=== PATIENT | female | born 1985 | race Caucasian/White ===

== ENCOUNTER 2016-10-24 16:02 | Inpatient (IN) | payer MEDICAID ==
[~2016-10-24] VITALS: Ht 170.2 cm; Wt 109.5 kg
[2016-10-24] MEDS ORDERED: FENTANYL PF 100 MCG/2ML ONE ×2 (16:19→17:17)
[2016-10-24] MEDS ORDERED: MAGNESIUM SULFATE PMX 4GM/100M 100 ML ONE (16:19)
[2016-10-24] MEDS ORDERED: BETAMETHASONE 6 MG/ML, 5ML IM ONE (16:19)
[2016-10-24] MEDS ORDERED: MAGNESIUM SULFATE PMX 4GM/100M 100 ML IVPB ONE (16:30)
[2016-10-24] MEDS ORDERED: MAGNESIUM SULF. PMX 20GM/500ML 500 ML IV SCH (16:30)
[2016-10-24] MEDS ORDERED: BETAMETHASONE 6 MG/ML, 5ML IM SCH (16:30)
[2016-10-24] MEDS ORDERED: LACTATED RINGERS 1,000 ML IV PRN (16:30)
[2016-10-24] MEDS ORDERED: FENTANYL PF 100 MCG/2ML IVPush PRN (16:30)
[2016-10-24] MEDS ORDERED: FENTANYL PF 100 MCG/2ML IV PRN (16:30)
[2016-10-24] MEDS ORDERED: OXYTOCIN 30U/ 0.9% NaCL 500ML 500 ML IV ONE (16:47)
[2016-10-24] MEDS ORDERED: ONDANSETRON 2MG/ML, 2ML IVPush PRN (17:00)
[2016-10-24] MEDS ORDERED: AMPICILLIN 2 GM in SODIUM CHLORIDE 0.9% 100 ML IVPB STA (17:00)
[2016-10-24] MEDS ORDERED: OXYTOCIN 30U/ 0.9% NaCL 500ML 500 ML ONE ×2 (17:04→17:35)
[2016-10-24] MEDS ORDERED: NEWBORN KIT ONE (17:06)
[2016-10-24] MEDS ORDERED: MISOPROSTOL 200 MCG TABLET ONE (17:07)
[2016-10-24] MEDS ORDERED: ONDANSETRON 2MG/ML, 2ML IV PRN (17:30)
[2016-10-24] MEDS ORDERED: METHYLERGONOVINE 0.2 MG/ML IM PRN (17:30)
[2016-10-24] MEDS ORDERED: METHYLERGONOVINE 0.2 MG/ML IM ONE (17:30)
[2016-10-24] MEDS ORDERED: OXYTOCIN 10 UNITS/ML, 1ML IM PRN (17:30)
[2016-10-24] MEDS ORDERED: OXYcodone/APAP 5/325MG TABLET PO PRN (17:30)
[2016-10-24] MEDS ORDERED: MISOPROSTOL 200 MCG TABLET PR PRN (17:30)
[2016-10-24] MEDS ORDERED: ACETAMINOPHEN 325 MG TABLET PO PRN (17:30)
[2016-10-24] MEDS ORDERED: CARBOPROST TROMETHAMINE 250 MCG/ML, 1ML IM PRN (17:30)
[2016-10-24] MEDS ORDERED: PLEASE ENTER HEIGHT AND WEIGHT MC SCH (17:30)
[2016-10-24] MEDS ORDERED: CEFAZOLIN 1,000 MG ONE (17:40)
[2016-10-24] MEDS: CEFAZOLIN PMX 1GM/50ML 50 ML IV SCH (17:55)
[2016-10-24] MEDS ORDERED: ONDANSETRON 2MG/ML, 2ML ONE (18:19)
[2016-10-24] MEDS: OXYTOCIN 30U/ 0.9% NaCL 500ML 500 ML IV SCH (19:55)
[2016-10-24 20:19] LABS: DIFF TOTAL CELLS COUNTED 100 CELL DIFF
[2016-10-24 20:22] LABS: POLYCHROMASIA 1+
[2016-10-24 20:23] LABS: VERIFY COUNTS? YES
[2016-10-24] MEDS ORDERED: OXYcodone/APAP 5/325MG TABLET ONE (20:32)
[2016-10-24] MEDS: OXYcodone/APAP 5/325MG TABLET PO PRN (20:33)
[2016-10-24] MEDS ORDERED: AMPICILLIN 1 GM in SODIUM CHLORIDE 0.9% 50 ML IVPB SCH (21:00)
[2016-10-24 21:05] VITALS: BP 127/72
[2016-10-25] VITALS: BP 119/73
[2016-10-25] MEDS: OXYcodone/APAP 5/325MG TABLET PO PRN ×4 (00:41→19:14)
[2016-10-25 00:42] LABS: DIFF TOTAL CELLS COUNTED 100 CELL DIFF
[2016-10-25 00:47] LABS: VERIFY COUNTS? YES
[2016-10-25 00:55] LABS: POLYCHROMASIA 1+
[2016-10-25] MEDS: OXYTOCIN 30U/ 0.9% NaCL 500ML 500 ML IV SCH (03:29)
[2016-10-25] MEDS: CEFAZOLIN PMX 1GM/50ML 50 ML IV SCH (06:24)
[2016-10-25 07:45] VITALS: BP 98/62
[2016-10-25] MEDS: PRENATAL VIT/IRON/FA 1 EACH TABLET PO SCH (09:41)
[2016-10-25] MEDS: IBUPROFEN 600 MG TABLET PO PRN (09:42)
[2016-10-25] MEDS: DOCUSATE 100 MG CAPSULE PO PRN ×2 (09:42→19:14)
[2016-10-25 12:05] VITALS: BP 95/60
[2016-10-25 16:35] VITALS: BP 104/66
[2016-10-25] MEDS ORDERED: CEFAZOLIN PMX 1GM/50ML 50 ML IV SCH (17:30)
[2016-10-25 19:00] VITALS: BP 99/63
[2016-10-25] MEDS ORDERED: DIPH,PERTUSS(ACELL),TET VAC/PF NC IM-VACC ONE (22:30)
[2016-10-26] MEDS: OXYcodone/APAP 5/325MG TABLET PO PRN ×2 (01:46→07:41)
[2016-10-26] MEDS: IBUPROFEN 600 MG TABLET PO PRN ×3 (01:46→15:54)
[2016-10-26 07:40] VITALS: BP 107/71
[2016-10-26] MEDS: PRENATAL VIT/IRON/FA 1 EACH TABLET PO SCH (07:41)
[2016-10-26] MEDS: DOCUSATE 100 MG CAPSULE PO PRN (07:41)
[2016-10-26] MEDS ORDERED: IBUP-1222 PO (14:42)
[2016-10-26] MEDS ORDERED: OXYC-302 PO (14:42)
[2016-10-26] MEDS ORDERED: SENN-1 PO (14:43)
== END 2016-10-26 16:00 | disposition home or self-care (01) | DRG 767 ==
LOC: LDOP 16:02 → LDIP 16:07 → 2NW 20:40
PROVIDERS: ADMIT Obstetrics & Gynecology; ATTEND Obstetrics & Gynecology
PROC: 10E0XZZ Delivery of Products of Conception, External Approach (ICD-10-PCS; principal; 2016-10-24)
PROC: 10D17ZZ Extraction of Products of Conception, Retained, Via Natural or Artificial Opening (ICD-10-PCS; 2016-10-24)
DX: O42.913 Preterm premature rupture of membranes, unspecified as to length of time between rupture and onset of labor, third trimester (principal); O60.14X0 Preterm labor third trimester with preterm delivery third trimester, not applicable or unspecified; O72.0 Third-stage hemorrhage; O26.873 Cervical shortening, third trimester; O24.429 Gestational diabetes mellitus in childbirth, unspecified control; O62.3 Precipitate labor; O99.214 Obesity complicating childbirth; E66.9 Obesity, unspecified; Z37.0 Single live birth; Z3A.31 31 weeks gestation of pregnancy; Z68.37 Body mass index [BMI] 37.0-37.9, adult; Z23 Encounter for immunization
CPT/HCPCS: 36415; 82803; 82962; 85025; 86850; 86900; 88305; 90715; J0290; J0690; J0702; J3010; J2210; J2590; J3475